=== PATIENT | male | born 1990 | race Caucasian/White ===

== ENCOUNTER 2016-12-09 20:58 | Emergency (ER) | payer OTHER ==
[2016-12-09 21:07] VITALS: BP 124/64
--- NOTE | 2016-12-09 21:28 | UC ---
Abdominal Pain Male HPI - HPI Summary HPI Summary: 26 YEAR OLD MALE PRESENTS WITH COMPLAINS OF SEVERE ACID REFLUX. - History of Current Complaint Chief Complaint: UCGI Stated Complaint: HEARTBURN Time Seen by Provider: 12/09/16 21:27 Hx Obtained From: Patient Onset/Duration: Lasting Days Severity Initially: Moderate Severity Currently: Moderate Pain Scale Used: 0-10 Numeric - 6 - Allergies/Home Medications Allergies/Adverse Reactions: Allergies Allergy/AdvReac Type Severity Reaction Status Date / Time No Known Allergies Allergy Verified 12/09/16 21:07 PMH/Surg Hx/FS Hx/Imm Hx Previously Healthy: Yes - Surgical History Surgical History: None - Social History Alcohol Use: None Substance Use Type: None Smoking Status (MU): Light Every Day Tobacco Smoker Type: Cigarettes Amount Used/How Often: 7 per day Review of Systems Constitutional: Negative Skin: Negative Eyes: Negative ENT: Negative Respiratory: Negative Cardiovascular: Negative Gastrointestinal: Abdominal Pain - EPIGASTRIC Genitourinary: Negative Motor: Negative Neurovascular: Negative Musculoskeletal: Negative Neurological: Negative Psychological: Negative All Other Systems Reviewed And Are Negative: Yes Physical Exam Triage Information Reviewed: Yes Appearance: Well-Appearing Vital Signs: Initial Vital Signs Temp 36.8 C 12/09/16 21:02 Pulse 74 12/09/16 21:02 Resp 16 12/09/16 21:02 BP 124/64 12/09/16 21:02 Pulse Ox 97 12/09/16 21:02 Vital Signs Reviewed: Yes Eye Exam: Normal ENT Exam: Normal Dental Exam: Normal Neck exam: Normal Neck: Positive: 1 Respiratory Exam: Normal Cardiovascular Exam: Normal Abdomen Description: Positive: Other: - EPIGASTRIC PAIN Musculoskeletal Exam: Normal Neurological Exam: Normal Psychological Exam: Normal Skin Exam: Normal Abd Pain Male Course/Dx - Differential Dx/Clinical Impression Provider Diagnoses: GERD Discharge - Discharge Plan Condition: Stable Disposition: HOME Prescriptions: Omeprazole CAP* [Prilosec CAP* 20 MG] 20 mg PO BEDTIME #30 cap. Sucralfate TAB* [Carafate*] 1 gm PO ACHS #120 tab Patient Education Materials: Gastritis (ED) Referrals: Jose Martin Joel MD [Medical Doctor] -
[2016-12-09] MEDS ORDERED: Sucralfate TAB* 1 GM PO ONE (21:37)
[2016-12-09] MEDS ORDERED: Omeprazole CAP* 20 MG PO ONE (21:37)
== END 2016-12-09 21:50 | disposition home or self-care (01) ==
LOC: UCEAST 20:58
DX: K21.9 Gastro-esophageal reflux disease without esophagitis (principal); F17.210 Nicotine dependence, cigarettes, uncomplicated
CPT/HCPCS: 99202; A9270-GY; G0463

== ENCOUNTER 2017-10-20 20:16 | Emergency (ER) | payer OTHER ==
[2017-10-20 20:29] VITALS: BP 137/80
--- NOTE | 2017-10-20 20:44 | UC ---
Epistaxis Nasal HPI - HPI Summary HPI Summary: 27-year-old male presents with complaints of obstruction to his right nostril for past 4 days. Associated with nasal congestion, clear nasal discharge, occasional postnasal drip, and occasional blood streaks in the nasal drainage. Denies fevers, chills, sinus pain or pressure, ear pain or drainage, sore throat , or cough. No history of nasal polyps or trauma. - History of Current Complaint Chief Complaint: UCGeneralIllness Stated Complaint: NOSE COMPLAINT Time Seen by Provider: 10/20/17 20:31 Hx Obtained From: Patient Timing: Days - 4 Severity Initially: Mild Severity Currently: Moderate Pain Intensity: 0 Aggravating Factor(s): Nothing Alleviating Factor(s): Nothing Associated Signs And Symptoms: Positive: Nasal Discharge - Allergies/Home Medications Allergies/Adverse Reactions: Allergies Allergy/AdvReac Type Severity Reaction Status Date / Time No Known Allergies Allergy Verified 10/20/17 20:28 PMH/Surg Hx/FS Hx/Imm Hx - Additional Past Medical History Additional PMH: Noncontributory - Surgical History Surgical History: None Surgery Procedure, Year, and Place: yes for GERD - Family History Known Family History: Positive: Other - Noncontributory - Social History Occupation: Student Lives: With Family Alcohol Use: None Substance Use Type: None Smoking Status (MU): Light Every Day Tobacco Smoker Type: Cigarettes Amount Used/How Often: 7 per day Review of Systems Constitutional: Negative Eyes: Negative ENT: Other - See history of present illness Respiratory: Negative Is Patient Immunocompromised?: No All Other Systems Reviewed And Are Negative: Yes Physical Exam Triage Information Reviewed: Yes Appearance: Well-Appearing, No Pain Distress, Well-Nourished Vital Signs: Initial Vital Signs Temp 98.4 F 10/20/17 20:23 Pulse 67 10/20/17 20:23 Resp 18 10/20/17 20:23 BP 137/80 10/20/17 20:23 Pulse Ox 99 10/20/17 20:23 Vital Signs Reviewed: Yes Eyes: Positive: Conjunctiva Clear ENT: Positive: Hearing grossly normal, Pharynx normal, Nasal drainage - Clear, TMs normal, Uvula midline, Other - Large nasal polyp right nostril. Nasal passage almost completely obstructed.. Negative: Sinus tenderness Neck: Positive: Supple, Nontender, No Lymphadenopathy Respiratory: Positive: Lungs clear, Normal breath sounds, No respiratory distress Cardiovascular: Positive: RRR, No Murmur Epistaxis Nasal Course/Dx - Course Course Of Treatment: 27-year-old male presents with 4 day history of right nasal obstruction without a history of trauma. Noted to have a large nasal polyp in the right nasal passage with near-complete obstruction. Will start fluticasone 2 sprays twice a day. Referral given for follow-up with ENT. Patient verbalizes understanding and agreement with plan of care. - Differential Dx/Diagnosis Provider Diagnoses: Right nasal polyp Discharge - Sign-Out/Discharge Documenting (check all that apply): Patient Departure - Discharge Plan Condition: Stable Disposition: HOME Prescriptions: Fluticasone NASAL SPRAY 50MCG* [Flonase NASAL SPRAY 50MCG*] 2 spray RIGHT NARE BID #1 btl Patient Education Materials: Nasal Polyps (ED) Referrals: [facility] [Primary Care Provider] - Shady Shafer MD [Medical Doctor] - (Call for an appointment) - Billing Disposition and Condition Condition: STABLE Disposition: Home
== END 2017-10-20 20:59 | disposition home or self-care (01) ==
LOC: UCEAST 20:16
DX: J33.9 Nasal polyp, unspecified (principal); F17.210 Nicotine dependence, cigarettes, uncomplicated
CPT/HCPCS: 99212; G0463